=== PATIENT | female | born 1985 | race Hispanic/Latino ===

== ENCOUNTER 2016-08-26 21:55 | Emergency (ER) | payer BC ==
[2016-08-26 22:09] VITALS: BP 130/83; PULSE 83; RESP 16; TEMP 97.5; O2SAT 99
[2016-08-26] MEDS ORDERED: Naproxen 500 MG TAB PO ONE ×2 (22:15→22:37)
--- NOTE | 2016-08-26 22:22 | ED PDOC ---
Lower Extremity Pain/Injury Time Seen by Provider: 08/26/16 22:09 Chief Complaint (Nursing): Lower Extremity Problem/Injury History Per: Patient Additional Complaint(s): Pt. states earlier today her cousin sat on a broken heavy plastic chair which broke and then fell on her R leg, R ankle, R foot. Persistent pain and swelling prompted ED visit. Denies numbness, tingling. Past Medical History Reviewed: Historical Data, Nursing Documentation, Vital Signs Vital Signs: Last Vital Signs Temp 97.5 F L 08/26/16 22:05 Pulse 83 08/26/16 22:05 Resp 16 08/26/16 22:05 BP 130/83 08/26/16 22:05 Pulse Ox 99 08/26/16 22:05 - Medical History PMH: Anxiety, Depression - Family History Family History: States: No Known Family Hx - Home Medications Home Medications: Ambulatory Orders Medication Instructions Recorded Ciprofloxacin HCl [Cipro] 500 mg PO BID #10 tab 04/16/14 Oxycodone HCl/Acetaminophen 1 tab PO Q6 PRN #12 tab 04/16/14 [Percocet 325 mg-5 mg] Tamsulosin HCl [Flomax] 0.4 mg PO DAILY #7 cap 04/16/14 - Allergies Allergies/Adverse Reactions: Allergies Allergy/AdvReac Type Severity Reaction Status Date / Time No Known Allergies Allergy Verified 04/16/14 12:47 Review of Systems ROS Statement: Except As Marked, All Systems Reviewed And Found Negative Musculoskeletal: Positive for: Leg Pain, Foot Pain Physical Exam - Physical Exam Appears: Positive for: Well, Non-toxic, No Acute Distress Skin: Positive for: Normal Color, Warm. Negative for: Rash Pulses-Dorsalis Pedis (L): 2+ Pulses-Dorsalis Pedis (R): 2+ Extremity: Positive for: Normal ROM, Other (Minimal tenderness and minimal swelling but no deformity on R anterior mid leg; R anterior ankle; and R dorsal foot ). Negative for: Pedal Edema - ECG O2 Sat by Pulse Oximetry: 99 - Progress ED Course And Treament: Naproxen 500mg PO given. R tib/fib, R ankle, R foot x-rays ordered. R tib/fib x-ray: no fx. R ankle and R foot x-ray: no fx as per radiology report. Foot and ankle nevin wrapped by PA. Crutches provided along with crutch walking instructions. Disposition - Clinical Impression Clinical Impression: Foot contusion - Patient ED Disposition Is Patient to be Admitted: No - Disposition Referrals: Dionisio Aguilar DPM [Staff Provider] - Disposition: Routine/Home Disposition Time: 23:19 Condition: STABLE Instructions: Contusion in Adults (ED), RICE Therapy (ED), Crutch Instructions (ED) Print Language: SINHALA
--- NOTE | 2016-08-26 22:58 | RAD ---
EXAM: XR Right Foot Complete, 3 or More Views CLINICAL HISTORY: 31 years old, female; Injury or trauma; Fall; Initial encounter; Blunt trauma; Foot; Right TECHNIQUE: Frontal, lateral and oblique views of the right foot. COMPARISON: No relevant prior studies available. FINDINGS: Bones/joints: No acute fracture. No dislocation. Soft tissues: Unremarkable. IMPRESSION: 1. No fracture. 2. If pain persists, suggest splinting and follow up radiographs in 7-10 days.
--- NOTE | 2016-08-26 22:58 | RAD ---
EXAM: XR Right Ankle Complete, 3 or More Views CLINICAL HISTORY: 31 years old, female; Injury or trauma; Fall; Initial encounter; Blunt trauma; Ankle; Right TECHNIQUE: Frontal, lateral and oblique views of the right ankle. COMPARISON: No relevant prior studies available. FINDINGS: Bones/joints: No acute fracture. No dislocation. Probable small joint effusion. Soft tissues: Unremarkable. IMPRESSION: 1. No fracture. 2. If pain persists, suggest splinting and follow up radiographs in 7-10 days. 3. Incidental/non-acute findings are described above.
--- NOTE | 2016-08-27 08:28 | RAD ---
HISTORY: trauma COMPARISON: No prior FINDINGS: BONES: Normal. No fracture. JOINTS: Normal. No osteoarthritis. SOFT TISSUE: Normal. OTHER FINDINGS: None . IMPRESSION: Normal Bone Xray.
== END 2016-08-26 23:32 | disposition home or self-care (01) ==
LOC: H.ER 21:55
DX: S90.31XA Contusion of right foot, initial encounter (principal); W19.XXXA Unspecified fall, initial encounter; Y92.89 Other specified places as the place of occurrence of the external cause